=== PATIENT | female | born 1990 | race Hispanic/Latino ===

== ENCOUNTER 2020-12-29 18:39 | Inpatient (IN) | payer MEDICAID, SELFPAY ==
[2020-12-29 19:12] VITALS: BMI 26.2
[2020-12-29] MEDS ORDERED: Promethazine HCl 25 MG/ML VIAL IM PRN ×2 (20:16→21:25)
[2020-12-29] MEDS ORDERED: Ibuprofen 800 MG TAB PO PRN (20:16)
[2020-12-29] MEDS ORDERED: NS / Oxytocin 40 units/1000ml 1,000 ML IV PRN (20:16)
[2020-12-29] MEDS ORDERED: Lactated Ringer's 1,000 ML IV SCH (20:16)
[2020-12-29] MEDS ORDERED: Butorphanol Tartrate 1 MG/ML VIAL SLOW IVP PRN (20:16)
[2020-12-29] MEDS ORDERED: Ondansetron PF 4 MG/2 ML Vial IVP PRN ×2 (20:16→21:25)
[2020-12-29] MEDS ORDERED: Lidocaine 1% (PF) 30 ML VIAL SC PRN (20:16)
[2020-12-29] MEDS ORDERED: hydrALAZINE 20 MG/ML VIAL SLOW IVP PRN (20:16)
[2020-12-29] MEDS ORDERED: HYDROcodone/Acetaminophen 5/325 mg Tablet PO PRN ×2 (20:16)
[2020-12-29 20:23] LABS: Mean Corpuscular HGB CONC 33.8 g/dL (32.0-36.0); Mean Corpuscular Volume 91.7 fl (81.6-98.3); Mean Platelet Volume 10.8 fl (7.4-10.4); Platelet Count 288 10x3/uL (150-450); RBC Distribution Width 12.7 % (11.5-14.5); White Blood Cell (WBC) Count 11.4 10x3/uL (3.5-10.5)
[2020-12-29] MEDS ORDERED: Fentanyl 4 mcg/Bup 0.1% Cadd 100 ML ONE (20:39)
[2020-12-29 20:51] LABS: Syphilis Antibody Nonreactive (Nonreactive); Syphilis Antibody Index 0.03 S/CO (<1.00 Non-Reactive)
[2020-12-29 20:52] LABS: Hep B Surf Ag Non-Reactive S/CO (NonReactive)
[2020-12-29 21:02] LABS: HBSAg Index 0.14 S/CO (0-0.99)
[2020-12-29] MEDS ORDERED: PHENYLEPHRINE-NS 100 MCG/ML 10 ML SYRINGE ONE (21:15)
[2020-12-29] MEDS ORDERED: diphenhydrAMINE 50 MG/ML VIAL IVP PRN (21:25)
[2020-12-29] MEDS ORDERED: Lactated Ringer's 500 ML IV PRN (21:25)
[2020-12-29] MEDS ORDERED: ePHEDrine 50 MG/ML VIAL SLOW IVP PRN (21:25)
[2020-12-29] MEDS ORDERED: Naloxone HCl 0.4 mg/ml Vial IVP PRN ×2 (21:25)
[2020-12-29] MEDS ORDERED: Acetaminophen 325 MG TAB PO PRN (21:25)
[2020-12-29] MEDS ORDERED: Fentanyl 4 mcg/Bupivacaine 0.1% Cassette 100 ML EPIDURAL SCH (21:30)
[2020-12-29] MEDS ORDERED: Communication Order-Pharmacy FS SCH (21:30)
[2020-12-29] MEDS: NS w/ Oxytocin 30 units 500 ML ONE (22:01)
[2020-12-29] MEDS: Lactated Ringer's 1,000 ML IV SCH (22:01)
[2020-12-30] MEDS ORDERED: Fentanyl 4 mcg/Bup 0.1% Cadd 100 ML ONE (05:11)
[2020-12-30] MEDS ORDERED: Methylergonovine 0.2 MG/ML VIAL ONE (06:18)
[2020-12-30] MEDS ORDERED: Misoprostol 200 MCG TAB ONE (06:19)
[2020-12-30] MEDS: Lactated Ringer's 1,000 ML IV SCH (07:17)
[2020-12-30] MEDS ORDERED: NS w/ Oxytocin 30 units 500 ML ONE (08:59)
[2020-12-30] MEDS: NS w/ Oxytocin 30 units 500 ML ONE (08:59)
[2020-12-30] MEDS ORDERED: Misoprostol 200 MCG TAB VAG PRN (09:06)
[2020-12-30] MEDS ORDERED: Measles/Mumps/Rubella 10 MCG/0.5 ML VIAL SC ONE (09:06)
[2020-12-30] MEDS ORDERED: Zolpidem Tartrate 5 MG TAB PO PRN (09:06)
[2020-12-30] MEDS ORDERED: Preparation H Ointment 28 GM TUBE PR PRN (09:06)
[2020-12-30] MEDS ORDERED: Varicella virus, LIVE 0.5 ML VIAL SC ONE (09:06)
[2020-12-30] MEDS ORDERED: Benzocaine-Menthol 82.5 ML CAN TOP PRN (09:06)
[2020-12-30] MEDS ORDERED: hydrALAZINE 20 MG/ML VIAL SLOW IVP PRN (09:06)
[2020-12-30] MEDS ORDERED: Lanolin Ointment 7 GM TUBE TOP PRN (09:06)
[2020-12-30] MEDS ORDERED: diphenhydrAMINE 25 MG CAP PO PRN (09:06)
[2020-12-30] MEDS ORDERED: Bisacodyl 10 MG SUPP PR PRN (09:06)
[2020-12-30] MEDS ORDERED: Methylergonovine 0.2 MG/ML VIAL IM PRN (09:06)
[2020-12-30] MEDS ORDERED: Adacel (T-DAP) 0.5 ML SYRINGE IM ONE (09:06)
[2020-12-30] MEDS ORDERED: HYDROcodone/Acetaminophen 5/325 mg Tablet PO PRN (09:06)
[2020-12-30] MEDS ORDERED: Ondansetron PF 4 MG/2 ML Vial IVP PRN (09:06)
[2020-12-30] MEDS ORDERED: Promethazine HCl 25 MG/ML VIAL IM PRN (09:06)
[2020-12-30] MEDS ORDERED: Milk Of Magnesia 30 ML UDCUP PO PRN (09:06)
[2020-12-30] MEDS ORDERED: Acetaminophen 500 MG TAB PO PRN (09:10)
[2020-12-30] MEDS ORDERED: NS w/ Oxytocin 30 units 500 ML IVPB SCH (10:00)
[2020-12-30 14:24] LABS: SARS-CoV-2 PCR by NAA Not Detected (NotDetected)
[2020-12-30] MEDS: Ibuprofen 800 MG TAB PO SCH ×2 (20:56)
[2020-12-30] MEDS: Docusate Calcium (SURFAK) 240 MG CAP PO SCH (20:56)
[2020-12-30] MEDS: HYDROcodone/Acetaminophen 5/325 mg Tablet PO PRN (20:57)
[2020-12-31] MEDS: Ibuprofen 800 MG TAB PO SCH ×3 (06:06→21:59)
[2020-12-31] MEDS ORDERED: Calcium Carbonate 500 MG ChewTAB PO SCH (07:45)
[2020-12-31] MEDS: Prenatal Vitamin 1 TAB PO SCH (09:03)
[2020-12-31] MEDS: Docusate Calcium (SURFAK) 240 MG CAP PO SCH ×2 (09:03→21:59)
[2020-12-31] MEDS ORDERED: Calcium Carbonate 500 MG ChewTAB PO PRN (10:00)
[2020-12-31] MEDS: Ferrous Sulfate 325 MG TAB PO SCH ×2 (13:17→16:57)
[2020-12-31] MEDS ORDERED: Bupivacaine 0.25% HCL 30 ML VIAL ONE (19:17)
[2020-12-31 22:48] VITALS: BP 109/70
[2021-01-01] MEDS: Ibuprofen 800 MG TAB PO SCH (05:56)
[2021-01-01 06:00] VITALS: TEMP 98.4
[2021-01-01] MEDS: Ferrous Sulfate 325 MG TAB PO SCH (07:21)
[2021-01-01] MEDS: HYDROcodone/Acetaminophen 5/325 mg Tablet PO PRN (08:27)
[2021-01-01] MEDS: Prenatal Vitamin 1 TAB PO SCH (08:28)
[2021-01-01] MEDS: Docusate Calcium (SURFAK) 240 MG CAP PO SCH (08:28)
== END 2021-01-01 14:00 | disposition home or self-care (01) | DRG 807 ==
LOC: CSHLD/OP 18:39 → CSHLD 23:16 → CSHPED 12-30 11:15
PROVIDERS: ADMIT Obstetrics & Gynecology; ATTEND Obstetrics & Gynecology
PROC: 10E0XZZ Delivery of Products of Conception, External Approach (ICD-10-PCS; principal; 2020-12-30)
PROC: 0HQ9XZZ Repair Perineum Skin, External Approach (ICD-10-PCS; 2020-12-30)
DX: O70.0 First degree perineal laceration during delivery (principal); Z37.0 Single live birth; Z3A.39 39 weeks gestation of pregnancy; Z20.822 Contact with and (suspected) exposure to COVID-19
CPT/HCPCS: 51702; 85027; 86780; 86850; 86900; 86901; 87340; 87635; 99285; J2405; J2590; S0020; U0003; U0005